=== PATIENT | female | born 1955 | race Caucasian/White ===

== ENCOUNTER 2023-11-01 11:52 | Emergency (ER) | payer OTHER, BC ==
[~2023-11-01] VITALS: Ht 165.1 cm; Wt 73.9 kg
[2023-11-01] MEDS ORDERED: LEVOTHYROXINE25 MCG (12:34)
[2023-11-01] MEDS ORDERED: OZEMPIC0.25 MG/02 (12:51)
[2023-11-01] MEDS ORDERED: JARDIANCE10 MG (12:52)
[2023-11-01] MEDS ORDERED: MUPIROCIN15 GM TOP (13:13)
[2023-11-01] MEDS ORDERED: DUI500 PO (13:13)
== END 2023-11-01 13:16 | disposition home or self-care (01) ==
LOC: ER 11:53
DX: S61.221A Laceration with foreign body of left index finger without damage to nail, initial encounter (principal); W26.0XXA Contact with knife, initial encounter; Y93.89 Activity, other specified; Y92.89 Other specified places as the place of occurrence of the external cause

== ENCOUNTER 2023-11-19 04:21 | Emergency (ER) | payer OTHER ==
[~2023-11-19] VITALS: Ht 170.2 cm; Wt 76.2 kg
[~2023-11-19 04:21] MED LIST: DUI500 PO; JARDIANCE10 MG; LEVOTHYROXINE25 MCG; MUPIROCIN15 GM TOP; OZEMPIC0.25 MG/02
[2023-11-19] MEDS ORDERED: ZYNCOF 20-400120 ML PO (06:02)
[2023-11-19] MEDS ORDERED: PHENAGIL TABLE1 EACH PO (06:02)
[2023-11-19] MEDS ORDERED: ZITHROMAX500 MG PO (06:02)
== END 2023-11-19 06:12 ==
LOC: ER 04:21
DX: J06.9 Acute upper respiratory infection, unspecified (principal); E11.9 Type 2 diabetes mellitus without complications; E03.9 Hypothyroidism, unspecified
CPT/HCPCS: 96372; 99284; J0696

== ENCOUNTER 2024-01-04 16:24 | Emergency (ER) | payer OTHER ==
[~2024-01-04] VITALS: Ht 162.6 cm; Wt 73.9 kg
[~2024-01-04 16:24] MED LIST changes: +PHENAGIL TABLE1 EACH PO; +ZITHROMAX500 MG PO; +ZYNCOF 20-400120 ML PO
[2024-01-04] MEDS ORDERED: KETOROLAC TROMETHAMINE 30 MG VIAL IM ONE (17:30)
== END 2024-01-04 21:38 | disposition home or self-care (01) ==
LOC: ER 16:24
DX: S62.395A Other fracture of fourth metacarpal bone, left hand, initial encounter for closed fracture (principal); W18.39XA Other fall on same level, initial encounter; Y93.89 Activity, other specified; Y92.480 Sidewalk as the place of occurrence of the external cause; S62.397A Other fracture of fifth metacarpal bone, left hand, initial encounter for closed fracture; S62.393A Other fracture of third metacarpal bone, left hand, initial encounter for closed fracture
CPT/HCPCS: 71250; 72040; 73030; 73070; 73100; 73130; 96372; 99284; J1885

== ENCOUNTER 2024-02-03 09:49 | Outpatient (CLI) | payer OTHER | END 2024-02-03 10:05 | disposition home or self-care (01) | LOC: RAD 09:49 | PROVIDERS: ATTEND Orthopaedic Surgery | DX: S62.347A Nondisplaced fracture of base of fifth metacarpal bone, left hand, initial encounter for closed fracture (principal) ==

== ENCOUNTER 2024-09-10 20:14 | Emergency (ER) | payer OTHER ==
[~2024-09-10] VITALS: Ht 165.1 cm; Wt 72.6 kg
[2024-09-10] MEDS ORDERED: GLUMETZA500 MG PO (20:37)
[2024-09-10] MEDS ORDERED: OZEMPIC1 MG/0.71 SQ (20:37)
[2024-09-10 23:15] LABS: HEMOGLOBIN 13.8 g/dL (12.0-15.00); MEAN CELL VOLUME 82.6 fL (80.00-100.00); MEAN CORPUSCULAR HEMOGLOBIN 27.8 pg (27.00-32.0); MEAN CORPUSCULAR HGB CONC 33.7 g/dl (32.0-36.0); PLATELET COUNT 133 K/uL (150-450); RED BLOOD COUNT 4.96 M/uL (4.00-6.00); RED CELL DISTRIBUTION WIDTH 14.7 % (11.5-14.5)
[2024-09-10 23:44] LABS: CREATININE SERUM 0.85 mg/dL (0.55-1.02); GFR 66.51; POTASSIUM 4.06 mEq/L (3.5-5.1)
== END 2024-09-11 00:19 | disposition home or self-care (01) ==
LOC: ER 20:16
PROVIDERS: General Practice
DX: H53.8 Other visual disturbances (principal); E11.9 Type 2 diabetes mellitus without complications; Z79.84 Long term (current) use of oral hypoglycemic drugs